=== PATIENT | female | born 1930 | race Caucasian/White ===

== ENCOUNTER 2016-11-07 22:08 | Inpatient (IN) | payer OTHER ==
[~2016-11-07] VITALS: Ht 162.6 cm; Wt 49.3 kg
--- NOTE | ~2016-11-07 | HC ---
[facility] [place] [address] CONSULTATION Name: KYUNG MORALES Room #: 201-P [facility] IN M.R.#: [id number] Admission: 11/08/16 Attend Phys: Esteban Carrasco Discharge: 11/11/16 Date of : 29 Report #: [id number] THIS REPORT FOR: //name// CC: Abisai Dia Esteban Carrasco DATE OF SERVICE: 11/08/2016 REFERRING PHYSICIAN: Dr. Barros. REASON FOR REFERRAL: Hypoxia. HISTORY OF PRESENT ILLNESS: The patient is an 86-year-old white female who presents to the Emergency Room with progressive dyspnea for the past 3 days. A pulmonary consultation was requested. The patient has known COPD. She is followed by Dr. Serrano. According to the patient, she was in her usual state of health until 3 days prior to presentation when she started to develop increasing dyspnea. She has also complained of episodic chest pain, but she has had it for a long time. Otherwise, denies any fever, night sweats or chills, chest pain or productive cough. PAST MEDICAL HISTORY: Remarkable for COPD, severity unknown; hypotension, status post bioprosthetic mitral valve replacement in 2013 for mitral valve disease, chronic systolic heart failure, recent echocardiogram in 08/2015 showed ejection fraction of 50-55%, history of Takotsubo cardiomyopathy in 2014. PAST SURGICAL HISTORY: As mentioned above. ALLERGIES: None noted. HOME MEDICATIONS: Include Flovent 110 mcg 2 puffs twice a day, albuterol 2 puffs p.r.n., Motrin, vitamin D3 and Claritin. FAMILY HISTORY: Noncontributory. SOCIAL HISTORY: The patient has smoked but quit many years ago. She drinks occasional alcohol. REVIEW OF SYSTEMS: As mentioned above, otherwise 10-point system review negative. PHYSICAL EXAMINATION: [facility] [address] [place] [address] CONSULTATION Name: KYUNG MORALES Room #: 201-P [facility] IN [facility].#: [id number] Admission: 11/08/16 Attend Phys: Esteban Carrasco Discharge: 11/11/16 Date of : 29 Report #: [id number] GENERAL: She is awake, alert, in no apparent distress. VITAL SIGNS: Temperature is 97.7 degrees Fahrenheit, pulse is 98, respiratory rate is 28, blood pressure is 112/54 mmHg, saturation is 98% on 4 liters of O2. HEENT: Normocephalic, atraumatic. NECK: Supple, without any lymphadenopathy or thyromegaly. CHEST: Breath sounds are decreased bilaterally without any obvious rales or wheezes. CARDIOVASCULAR: Normal S1, S2. There are no murmurs or gallop. There is no JVD. There is no carotid bruit. Pulses are 2+/4+ bilaterally. ABDOMEN: Soft, nontender, no organomegaly or masses felt. GENITOURINARY: Deferred. RECTAL: Deferred. EXTREMITIES: No cyanosis or clubbing, but remarkable 1-2+ bilateral edema. LABORATORY DATA: Chest x-ray shows cardiomegaly without obvious infiltrates or effusions. Electrolytes are grossly unremarkable except for potassium of 3.4, creatinine is normal. WBC 11,900, hemoglobin ____. No bandemia. IMPRESSION: 1. Progressive dyspnea in this 86-year-old white female with a history of chronic systolic heart failure, chronic obstructive pulmonary disease. Chest x-ray shows cardiomegaly without obvious infiltrates. She denies any recent febrile illness. Mild leukocytosis is noted. Etiology may be related to underlying chronic obstructive pulmonary disease with exacerbation. No overt heart failure, though cannot completely rule out. I do not think pneumonia is ruled out with a relatively clear chest x-ray. 2. Chronic obstructive pulmonary disease, severe, unknown, with exacerbation. 3. Presumed acute on chronic systolic heart failure, ejection fraction had measured 50-55% in 2016. 4. Thrombocytosis, platelet count on this admission was more than a million. This apparently has been chronic. 5. Status post bioprosthetic mitral valve replacement in 2013. RECOMMENDATIONS: Agree with current medical treatment including broad-spectrum antibiotics, corticosteroids and bronchodilators. DVT and GI prophylaxis will be addressed. By: [address] /nt
--- NOTE | ~2016-11-07 | EKG ---
[place] [address] [facility] [place] [address] ELECTROCARDIOGRAM REPORT Name: KYUNG MORALES Room #: 201-P ADM IN M.R.#: [id number] Admission: 11/08/16 Attend Phys: Esteban Carrasco Discharge: Date of : 29 Report #: [id number] THIS REPORT FOR: //name// [facility] ED Test Date: 2016-11-08 Test Time: 00:25:51 Pat Name: KYUNG MORALES Department: Room: 201 Gender: F Yarn Preparation Supervisor: JUAN JOSE : 1930 Requested By: Neva Mathew Order Number: [id number] MD: Paulino Hodge Measurements Intervals [place] Rate: 82 P: 66 DE: 218 QRS: -34 QRSD: 119 T: 81 QT: 419 QTc: 490 Interpretive Statements Sinus rhythm Ventricular bigeminy Probable left atrial enlargement Nonspecific intraventricular conduction delay Anteroseptal infarct, age indeterminate Inferior and lateral ST and T wave abnormality no previous ECGs available for comparison Electronically Signed On 11-08-2016 8:11:23 CDT by Paulino Hodge [email or web address] <ELECTRONICALLY SIGNED> By: Paulino Hodge MD, [facility] 11/08/16 0811 0025 0025 Paulino Hodge MD, [facility] /EPI
--- NOTE | ~2016-11-07 | EKG ---
[address] [place] [address] ELECTROCARDIOGRAM REPORT Name: KYUNG MORALES Room #: 201-P ADM IN M.R.#: [id number] Admission: 11/08/16 Attend Phys: Esteban Carrasco Discharge: Date of : 29 Report #: [id number] THIS REPORT FOR: //name// [facility] ED Test Date: 2016-11-07 Test Time: 22:20:36 Pat Name: KYUNG MORALES Department: Room: 201 Gender: F Auto Service Instructor: JUAN JOSE : 1930 Requested By: Neva Mathew Order Number: [id number] MD: Monty Monsalve Measurements Intervals [place] Rate: 85 P: [place]: QRS: -51 QRSD: 126 T: 95 QT: 451 QTc: 537 Interpretive Statements Sinus rhythm with frequent PVCs. LVH with secondary repolarization abnormality Compared to ECG 09/14/2015 12:13:58 Ventricular premature complex(es) now present Intraventricular conduction delay now present Electronically Signed On 11-08-2016 10:16:22 CDT by Monty Monsalve [email or web address] <ELECTRONICALLY SIGNED> By: Monty Monsalve MD 11/08/16 1016 19 19 Monty Monsalve MD /EPI
[~2016-11-07 22:08] MED LIST: ADVAIR; ADVAIR 250-501 EACH INH; ADVAIR HFA 1112 UNIT INH; ADVAIR HFA115 MCG/21 INH; ALBUTEROL2.5 MG/0.5 INH; ALDACTONE25 MG PO; ASPIR 8181 MG PO; BELSOMRA15 MG PO; CLARITIN10 MG PO; DOXYCYCLINE 10100 MG PO; FLEXERIL PO; FLONASE 0.05%50 MCG INH; FLOVENT HFA 1110 MCG INH; HTN MEDS; HYDROCODONE-AP1 EAC6 PO; IBUPROFEN 800800 M1; LASIX 40 MG TAB40 M2 PO; LEVAQUIN 500 M500 M2 PO; LISINOPRIL2.5 MG PO; LOPRESSOR25 PO; MAGOX 400400 MG PO; NORCO 5-325 TA1 EACH PO; PREDNISONE10 MG PO; PROAIR HFA8.5 GM; SYMBICORT160 MCG/4. INH; TOPROL XL25 MG PO; VITAMIN B-12500 MCG PO; VITAMIN B-6100 MG PO; VITAMIN B12 PO; VITAMIN D35000 UNI1 PO
[2016-11-07 22:22] VITALS: BP 112/54
[2016-11-07 22:26] LABS: HEMOGLOBIN 10.7 gm/dL (12.0-15.0)
[2016-11-07 22:28] LABS: HEMATOCRIT 33.1 % (37.0-47.0); MCH 32.7 pg (26.0-34.0); MCHC 32.4 g/dL (28.0-37.0); MCV 100.9 fL (80.0-100.0); RBC 3.28 mil/uL (4.20-5.00); RDW 19.6 % (10.5-14.5); WBC 11.9 thou/uL (4.0-11.0)
[2016-11-07 22:29] LABS: MANUAL DIFF YES
[2016-11-07 22:33] LABS: ANION GAP 8 mmol/L (7-16); BUN 13 mg/dL (7-18); CALCIUM 9.2 mg/dL (8.5-10.1); CHLORIDE 99 mmol/L (98-107); CO2 35 mmol/L (21-32); CREATININE 0.9 mg/dL (0.6-1.0); GLUCOSE 142 mg/dL (74-106); POTASSIUM 3.4 mmol/L (3.5-5.1); SODIUM 142 mmol/L (136-145)
[2016-11-07 22:40] LABS: APTT 28.8 Seconds (24.5-32.8); INR 1.1; PROTIME 11.1 Seconds (9.3-11.4)
[2016-11-07 22:42] LABS: TROPONIN-I < 0.04 ng/mL (<0.04-0.07)
[2016-11-07 22:57] LABS: PLATELET ESTIMATE AGREES WITH COUNT
[2016-11-07 22:58] LABS: PLATELET COUNT 1008 thou/uL (150-400)
[2016-11-07 23:01] LABS: ABSOLUTE NEUTROPHILS 9.6 thou/uL (1.4-8.2); ANISOCYTOSIS 3+; LARGE PLATELETS OCCASIONAL; MACROCYTES 2+; METAMYELOCYTES 1 %; MICROCYTES 1+; MYELOCYTES 2 %; POLYCHROMASIA OCCASIONAL; TOTAL CELL COUNT 100
[2016-11-08] VITALS (10 sets, daily range): BP systolic 94–145; BP diastolic 46–124
[2016-11-08] MEDS ORDERED: LASIX 20 MG TAB20 MG PO (01:22)
[2016-11-08 04:57] LABS: HEMATOCRIT 31.4 % (37.0-47.0); HEMOGLOBIN 10.6 gm/dL (12.0-15.0); MCH 34.4 pg (26.0-34.0); MCHC 33.9 g/dL (28.0-37.0); MCV 101.4 fL (80.0-100.0); RBC 3.1 mil/uL (4.20-5.00); RDW 19.9 % (10.5-14.5); WBC 10.2 thou/uL (4.0-11.0)
[2016-11-08 05:23] LABS: ANION GAP 2 mmol/L (7-16); BUN 12 mg/dL (7-18); CALCIUM 8.4 mg/dL (8.5-10.1); CHLORIDE 98 mmol/L (98-107); CO2 38 mmol/L (21-32); CREATININE 0.7 mg/dL (0.6-1.0); GLUCOSE 162 mg/dL (74-106); NT-PRO BRAIN NAT PEPTIDE 5711 pg/mL (<300); POTASSIUM 4.2 mmol/L (3.5-5.1); SODIUM 138 mmol/L (136-145); TROPONIN-I < 0.04 ng/mL (<0.04-0.07)
[2016-11-08 08:29] LABS: % SATURATION 12 % (20-39); IRON 38 ug/dL (50-170); TIBC 306 ug/dL (250-450); UIBC 268 ug/dL
[2016-11-08 08:42] LABS: ABSOLUTE RETIC COUNT 0.0866 10^6/uL; OBSERVED RETIC COUNT 2.72 % (0.6-2.6)
[2016-11-09 03:08] VITALS: BP 118/56
[2016-11-09 06:26] LABS: HEMATOCRIT 31.2 % (37.0-47.0); HEMOGLOBIN 10.3 gm/dL (12.0-15.0); MCH 32.9 pg (26.0-34.0); MCHC 32.8 g/dL (28.0-37.0); MCV 100.2 fL (80.0-100.0); RBC 3.12 mil/uL (4.20-5.00); RDW 19.8 % (10.5-14.5); WBC 12.4 thou/uL (4.0-11.0)
[2016-11-09 06:35] LABS: CALCIUM 8.5 mg/dL (8.5-10.1); CREATININE 0.9 mg/dL (0.6-1.0); POTASSIUM 4.1 mmol/L (3.5-5.1)
[2016-11-09 07:02] VITALS: BP 135/71
[2016-11-09 09:59] VITALS: BP 135/48
[2016-11-09 15:23] VITALS: BP 156/89
[2016-11-09 15:26] VITALS: BP 102/50
[2016-11-09 19:04] VITALS: BP 131/80
[2016-11-10 03:07] VITALS: BP 115/65
[2016-11-10 07:15] VITALS: BP 110/58
[2016-11-10 11:15] VITALS: BP 109/60
[2016-11-10 16:05] VITALS: BP 108/48
[2016-11-10 16:15] VITALS: BP 121/80
[2016-11-10 19:30] VITALS: BP 106/62
[2016-11-11 00:08] VITALS: BP 129/68
[2016-11-11 03:09] LABS: HEMOGLOBIN 10.2 gm/dL (12.0-15.0); WBC 11.4 thou/uL (4.0-11.0)
[2016-11-11 03:11] LABS: HEMATOCRIT 31.4 % (37.0-47.0); MCH 32.9 pg (26.0-34.0); MCHC 32.7 g/dL (28.0-37.0); MCV 100.6 fL (80.0-100.0); PLATELET COUNT 884 thou/uL (150-400); RBC 3.12 mil/uL (4.20-5.00); RDW 20.5 % (10.5-14.5)
[2016-11-11 03:12] LABS: MANUAL DIFF YES
[2016-11-11 03:37] LABS: CALCIUM 8.3 mg/dL (8.5-10.1); CREATININE 1.1 mg/dL (0.6-1.0); MAGNESIUM 1.7 mg/dL (1.8-2.4); POTASSIUM 3.1 mmol/L (3.5-5.1)
[2016-11-11 04:01] LABS: ABSOLUTE NEUTROPHILS 10.6 thou/uL (1.4-8.2); ANISOCYTOSIS 2+; METAMYELOCYTES 1 %; TOTAL CELL COUNT 100
[2016-11-11 04:02] LABS: LARGE PLATELETS FEW; PLATELET ESTIMATE INCREASED; TOXIC GRANULATION 2+
[2016-11-11 04:03] VITALS: BP 148/78
[2016-11-11 04:06] LABS: OVALOCYTES 1+; SCHISTOCYTES FEW
[2016-11-11 07:10] VITALS: BP 148/93
[2016-11-11] MEDS ORDERED: COZAAR 25 MG TA25 MG PO (08:21)
[2016-11-11] MEDS ORDERED: KLOR-CON M2020 MEQ PO (08:21)
[2016-11-11] MEDS ORDERED: TOPROL XL25 MG PO (08:21)
[2016-11-11] MEDS ORDERED: TORSEMIDE20 MG PO (08:21)
[2016-11-11] MEDS ORDERED: DUONEB 2.5-0.5 M3 ML INH (08:21)
[2016-11-11] MEDS ORDERED: PREDNISONE 10 M10 MG PO (08:21)
[2016-11-11] MEDS ORDERED: MAG6464 MG PO (08:21)
[2016-11-11 09:40] VITALS: BP 148/93
[2016-11-11 13:46] VITALS: BP 148/93
== END 2016-11-11 13:30 | disposition home health service (06) | DRG 291 ==
LOC: ER 22:08 → 2N 11-08 00:06 → EROBS 11-08 00:06 → 2N 11-08 01:04
PROVIDERS: Emergency Medicine; Internal Medicine; Internal Medicine Hematology & Oncology; Internal Medicine Pulmonary Disease; Nurse Practitioner Family
DX: I11.0 Hypertensive heart disease with heart failure (principal); J96.21 Acute and chronic respiratory failure with hypoxia; J44.1 Chronic obstructive pulmonary disease with (acute) exacerbation; I50.23 Acute on chronic systolic (congestive) heart failure; D47.3 Essential (hemorrhagic) thrombocythemia; E83.42 Hypomagnesemia; I73.9 Peripheral vascular disease, unspecified; K57.90 Diverticulosis of intestine, part unspecified, without perforation or abscess without bleeding; E78.5 Hyperlipidemia, unspecified; D64.9 Anemia, unspecified; F32.9 Major depressive disorder, single episode, unspecified; Z85.828 Personal history of other malignant neoplasm of skin; Z79.899 Other long term (current) drug therapy; Z87.891 Personal history of nicotine dependence; Z95.2 Presence of prosthetic heart valve; Z90.710 Acquired absence of both cervix and uterus; Z99.81 Dependence on supplemental oxygen
CPT/HCPCS: 10081

== ENCOUNTER 2017-05-01 09:34 | Inpatient (IN) | payer OTHER ==
[~2017-05-01] VITALS: Ht 154.9 cm; Wt 46.7 kg
--- NOTE | ~2017-05-01 | EKG ---
[place] [address] [facility] [employer] [place] [address] ELECTROCARDIOGRAM REPORT Name: KYUNG MORALES Room #: 428-P [facility] IN .R.#: [id number] Admission: 05/01/17 Attend Phys: Hitesh Washburn MD Discharge: 05/07/17 Date of : 29 Report #: [id number] THIS REPORT FOR: //name// [facility] ED Test Date: 2017-05-01 Test Time: 09:47:13 Pat Name: KYUNG MORALES Department: Room: Gender: F Magnetic Prospecting Supervisor: Bret CUMMINGS : 1929-08-02 Requested By: Avila Huber Order Number: [id number] MD: Measurements Intervals [place] Rate: 97 P: [place]: QRS: 70 QRSD: 105 T: 76 QT: 412 QTc: 524 Interpretive Statements Atrial fibrillation Paired ventricular premature complexes Anteroseptal infarct, age indeterminate ST elevation, consider inferior injury Compared to ECG 01/26/2017 04:26:10 Ventricular premature complex(es) now present Myocardial infarct finding now present ST (T wave) deviation now present Sinus tachycardia no longer present [email or web address] By: [id number] 6 Epiphany Epiphany, /EPI
--- NOTE | ~2017-05-01 | EKG ---
[place] [address] [facility] [place] [address] ELECTROCARDIOGRAM REPORT Name: LIANGAZARKYUNG Room #: 428-P [facility] IN M.R.#: [id number] Admission: 05/01/17 Attend Phys: Hitesh Washburn MD Discharge: 05/07/17 Date of : 29 Report #: [id number] THIS REPORT FOR: //name// [facility] ED Test Date: 2017-05-01 Test Time: 09:47:13 Pat Name: KYUNG MORALES Department: Room: [facility] Gender: F Tumbler Tender: Bret CUMMINGS : 1929-08-02 Requested By: Avila Huber Order Number: [id number] MD: Paulino Hodge Measurements Intervals [place] Rate: 97 P: [place]: QRS: 70 QRSD: 105 T: 76 QT: 412 QTc: 524 Interpretive Statements Probable atrial fibrillation Paired ventricular premature complexes Anteroseptal infarct, age indeterminate Compared to ECG 01/26/2017 04:26:10 Ventricular premature complex(es) now present Sinus tachycardia no longer present Electronically Signed On 05-01-2017 16:58:35 VIBRATING SCREEN OPERATOR by Paulino Hodge [email or web address] <ELECTRONICALLY SIGNED> By: Paulino Hodge MD, [facility] 05/01/17 1658 0947 0947 Paulino Hodge MD, [facility] /EPI
--- NOTE | ~2017-05-01 | EKG ---
[place] [address] [place] [address] ELECTROCARDIOGRAM REPORT Name: LIANGAZARKYUNG AMELIE Room #: [facility] IN M.R.#: [id number] Admission: 05/01/17 Attend Phys: Hitesh Washburn MD Discharge: 05/07/17 Date of : 29 Report #: [id number] THIS REPORT FOR: //name// [facility] Test Date: 2017-05-05 Test Time: 06:37:10 Pat Name: KYUNG MORALES Department: Room: [facility] Gender: F Drafter Refrigeration: KAMI : 1929-08-02 Requested By: Toby Jennings Order Number: [id number] MD: Paulino Hodge Measurements Intervals [place] Rate: 70 P: -3 OR: 221 QRS: -23 QRSD: 100 T: 52 QT: 400 QTc: 432 Interpretive Statements Sinus rhythm Multiple ventricular premature complexes Prolonged [place] interval Poor R wave progression Baseline wander in lead(s) V1 Compared to ECG 05/01/2017 09:47:13 Sinus rhythm has replaced probable atrial fibrillation Electronically Signed On 05-05-2017 7:48:27 SUPERVISOR [employer]AK[employer] by Paulino Hodge [email or web address] <ELECTRONICALLY SIGNED> By: Paulino Hodge MD, [facility] 05/05/17 0748 0637 0637 Paulino Hodge MD, [facility] /EPI
--- NOTE | ~2017-05-01 | HC ---
[facility] [place] [address] CONSULTATION Name: KYUNG MORALES Room #: 428-P [facility] IN M.R.#: [id number] Admission: 05/01/17 Attend Phys: Hitesh Washburn MD Discharge: 05/07/17 Date of : 29 Report #: [id number] THIS REPORT FOR: //name// CC: Eladia Jennings MD [facility] Hitesh Washburn MD REQUESTING PHYSICIAN: Hitesh Washburn MD REASON FOR CONSULT: Thrombocythemia. HISTORY OF PRESENT ILLNESS: The patient is a very pleasant 87-year-old female who is originally from [place] who lives down here in the [place] area in the [place] area. She is not aware of any previous history of thrombocytosis. Note that at the [facility] lab a few times in 2016, her platelet count was in the mid 500,000. She reports recently being at [facility] for exacerbation of COPD, but is not aware of her platelet count during that time. Here, her platelet count on admission was 869,000 and actually yesterday was 1,088,000. Note that during the same time, her hemoglobin has been 10.5, MCV of 98.4 and white count of 9 with a fairly normal differential. The patient was admitted for atrial fibrillation and presented with shortness of breath. She is on a nebulizer, but it did not seem to help much. If I understand, denied any fevers or chills, new arm or leg swelling, blood in urine or stool. PAST MEDICAL HISTORY: Notable for anemia, COPD, history of tonsillectomy, history of hysterectomy, also had a valve replaced over at about 2013 or 2014, has a bioprosthetic valve, sound like ____, I am not quite sure what that means. She also has hypertension, hypercholesterolemia and also Takotsubo cardiomyopathy. SOCIAL HISTORY: It sounds like she herself is a smoker and quit maybe 30 years ago, but her was a heavy smoker, so a lot of secondhand smoke. Alcohol, she enjoys cocktail, [facility] [place], also likes quite a few of the restaurants in the [place] in [facility]. She has maybe cocktails several evenings a week. No street drugs. FAMILY HISTORY: She is not aware of any cancers or blood disorders with either her mother, father, brother, sister or a son. MEDICATIONS: At this time in the hospital include prednisone 20 mg q.12, pantoprazole 40 mg daily, sennosides 2 tabs with dinner, ipratropium respiratory therapy q.6 as needed, potassium chloride 20 mEq daily, furosemide 20 mg daily, iron sulfate 325 mg daily, guaifenesin 600 b.i.d., mirtazapine 15 at bedtime, levalbuterol 0.63 mg q.2 as needed, budesonide 0.5 mg respiratory therapy b.i.d., doxycycline 100 mg b.i.d., had been on ceftriaxone 1 gram daily, rivaroxaban 15 mg at dinner, and Tylenol p.r.n. [facility] [address] [facility] [place] [address] CONSULTATION Name: KYUNG MORALES Room #: 428-P [facility] IN M.R.#: [id number] Admission: 05/01/17 Attend Phys: Hitesh Washburn MD Discharge: 05/07/17 Date of : 29 Report #: [id number] RADIOLOGIC STUDIES: Include a chest x-ray this admit showing interval improvement in bilateral pleural effusions, bibasilar infiltrates and interval improvement in cardiomegaly. LABORATORY DATA: Other lab tests here include BUN of 32 and creatinine of 0.9. Liver functions earlier this admit were normal. Albumin of 3.5. Coags have been normal. WBC was 8.7, admission hemoglobin 9.7, MCV had been 101.5, platelets 869. Folic acid on May 01, was greater than 40, B12 was 817. Respiratory PCR virus panel was negative. She has been on 3 liters of oxygen. PHYSICAL EXAMINATION: GENERAL: The patient appears her stated age. VITAL SIGNS: Height is 5 feet 1 inch, which is 154.9 cm. Weight is 102.9 pounds, which is 46.7 kg. Recent blood pressure 110/58, O2 sat 95%, pulse 69, respirations 16, and temperature 99.1. MOOD: She is alert and very pleasant. NEUROLOGIC: Face is symmetrical, moving all extremities. LUNGS: Have some slightly distant lung sounds. HEART: Appears regular rate. ABDOMEN: Soft. No enlarged lymph nodes in the supraclavicular, cervical, axillary, or inguinal region. EXTREMITIES: Without clubbing or cyanosis. There is some trace edema. DISCUSSION: Discussed with the patient that I am seeing her because of her high platelet count, which may be reactive or could be a bone marrow condition. I told her that there is a condition called essential thrombocythemia, which can have a higher clot and bleeding risk, on either hand she is currently on Xarelto, so she would be quite protected. Since this could be reactive, we will check lab as an outpatient, also get lab from [facility]. We would consider checking a JAK2 mutation as well as an erythropoietin level and may need to consider an MIPL test. We will see what workup was done at [facility]. ASSESSMENT AND PLAN: 1. Thrombocythemia, unclear whether reactive or primary. We will check lab from [facility], most likely follow up in 6 weeks. We would consider JAK2 mutation and perhaps an MIPL mutation test and if these are positive, I would consider Hydrea to normalize platelet count to help decrease risk for strokes and clots for the main benefit, short term is from anticoagulants such as aspirin, in this case rivaroxaban. 2. Exacerbation of chronic obstructive pulmonary disease. Continue steroids, inhalers, and antibiotics. 3. Bioprosthetic valve. Continue with Xarelto. 4. Chronic obstructive pulmonary disease, multiple inhalers. [facility] [address] [place] [address] CONSULTATION Name: KYUNG MORALES Room #: 428-P [facility] IN M.R.#: [id number] Admission: 05/01/17 Attend Phys: Hitesh Washburn MD Discharge: 05/07/17 Date of : 29 Report #: [id number] 5. Lipids, dietary management. 6. Hypertension. Medication management. We will follow with you. <ELECTRONICALLY SIGNED> By: Otilio Tovar MD 05/14/17 0710 0836 1250 Otilio Tovar MD /la nena
--- NOTE | ~2017-05-01 | 2DMMODE ---
[facility] [address] [place] [address] 2 D/M-MODE ECHOCARDIOGRAM Name: KYUNG MORALESAN Room #: 428-P [facility] IN M.R.#: [id number] Admission: 05/01/17 Attend Phys: Hitesh Washburn, Discharge: 05/07/17 Date of : 29 Date of Service: 05/02/17 1210 Report #: [id number] THIS REPORT FOR: //name// APPROVED REPORT Study performed: 05/02/2017 10:22:58 EXAM: Comprehensive 2D, Doppler, and color-flow Echocardiogram Patient Location: Bedside Room #: 428 Status: routine BSA: 1.40 BP: 122/60 mmHg Other Information Study Quality: Good Indications COPD Mitral Valve Disease Atrial Fibrillation Hypertension/HDD MVR 2D Dimensions RVDd: 50.60 mm LVEF(%): 51.75 (>50%) IVSd: 10.38 (7-11mm) LVOT Diam: 19.52 (18-24mm) LVDd: 57.33 mm PWd: 9.59 (7-11mm) Ascending Ao: 32.94 (22-36mm) LVDs: 41.92 (25-40mm) Aortic Root: 31.06 mm IVC: 25.00 mm German's LVEF: 51.75 % Volumes Left Atrial Volume (Systole) Single Plane 4CH: 133.54 mL Single Plane 2CH: 147.82 mL LA ESV Index: 113.00 mL/m2 Aortic Valve AoV Peak Cash.: 1.90 m/s AO Peak Gr.: 14.54 mmHg LVOT Max P.26 mmHg LVOT Max V: 1.14 m/s DARIANA Vmax: 1.79 cm2 [facility] [place] [address] 2 D/M-MODE ECHOCARDIOGRAM Name: MORIAH MORALESTY AMELIE [id number] Admission: 05/01/17 Attend Phys: Hitesh Washburn, Discharge: 05/07/17 Date of : 29 Date of Service: 05/02/17 1210 Report #: [id number] Pulmonary Valve PV Peak Cash.: 0.96 m/s PV Peak Gr.: 3.68 mmHg NC End Vmax: 1.16 m/s Tricuspid Valve TR Peak Cash.: 3.15 m/s TR Peak Gr.: 39.69 mmHg PA Pressure: 55.00 mmHg Left Ventricle Left ventricle is at the upper limits of normal. There is normal LV segmental wall motion. There is normal left ventricular wall thickness. The left ventricular systolic function is normal. The left ventricular ejection fraction is within the normal range. LVEF is 55-60%. This study is not technically sufficient to allow evaluation of the LV diastolic function due to atrial fibrillation. Right Ventricle Right ventricle is dilated. The right ventricular systolic function is normal. Atria Left atrium is dilated. Small PFO is noted with color flow doppler. Right atrium is dilated. Aortic Valve Aortic valve is calcified, trileaflet. Trace aortic regurgitation. There is no aortic valvular stenosis. Mitral Valve There is a bioprosthetic mitral valve. Trace to mild mitral regurgitation. No evidence of mitral valve stenosis. Tricuspid Valve The tricuspid valve is normal in structure. There is mild tricuspid regurgitation. Estimated PAP 55 mmHg. There is moderate pulmonary hypertension. Pulmonic Valve The pulmonary valve is normal in structure. Mild pulmonic regurgitation. Great Vessels The aortic root is normal in size. The inferior vena cava is dilated with no inspiratory collapse. [facility] [address] [place] [address] 2 D/M-MODE ECHOCARDIOGRAM Name: LIANGAZARKYUNG Room #: 428-P [facility] IN M.R.#: [id number] Admission: 05/01/17 Attend Phys: Hitesh Washburn, Discharge: 05/07/17 Date of : 29 Date of Service: 05/02/17 1210 Report #: [id number] Pericardium There is no pericardial effusion. <Conclusion> The left ventricular systolic function is normal. There is normal LV segmental wall motion. LVEF is 55-60%. Both atria are dilated. Small PFO is noted with color flow doppler. Aortic valve is calcified, trileaflet. No aortic valvular stenosis or insufficiency. There is a bioprosthetic mitral valve. Trace to mild mitral regurgitation. There is mild tricuspid regurgitation. Estimated pulmonary artery pressure of 55 mmHg. There is no pericardial effusion. <ELECTRONICALLY SIGNED> By: Paulino Hodge MD, FACC 05/02/17 1210 1210 121 Paulino Hodge MD, FACC /INF
[~2017-05-01 09:34] MED LIST changes: +COZAAR 25 MG TA25 MG PO; +DUONEB 2.5-0.5 M3 ML INH; +KLOR-CON M2020 MEQ PO; +LASIX 20 MG TAB20 MG PO; +MAG6464 MG PO; +PREDNISONE 10 M10 MG PO; +PREDNISONE 20 M20 MG PO; +TORSEMIDE20 MG PO; +VENTOLIN HFA 1818 GM INH
[2017-05-01 09:42] VITALS: BP 129/45
[2017-05-01] MEDS ORDERED: LASIX 20 MG TAB20 MG PO (09:59)
[2017-05-01] MEDS ORDERED: POTASSIUM20 PO (10:00)
[2017-05-01] MEDS ORDERED: XARELTO15 MG PO (10:00)
[2017-05-01] MEDS ORDERED: LOPRESSOR25 PO (10:01)
[2017-05-01] MEDS ORDERED: REMERON15 MG PO (10:01)
[2017-05-01] MEDS ORDERED: FERROUS GLUCON324 M2 PO (10:02)
[2017-05-01 10:16] LABS: ABSOLUTE NEUTROPHILS 6.3 thou/uL (1.4-8.2); BASOPHILS 2.3 % (0.0-2.0); EOSINOPHILS 2.7 % (0.0-3.0); HEMATOCRIT 30.2 % (37.0-47.0); HEMOGLOBIN 9.7 gm/dL (12.0-15.0); LYMPHOCYTES 17.7 % (24.0-44.0); MCH 32.7 pg (26.0-34.0); MCHC 32.2 g/dL (28.0-37.0); MCV 101.5 fL (80.0-100.0); MONOCYTES 5.6 % (1.0-8.0); POLYS 71.7 % (36.0-66.0); RBC 2.98 mil/uL (4.20-5.00); RDW 18.3 % (10.5-14.5); WBC 8.7 thou/uL (4.0-11.0)
[2017-05-01 10:19] LABS: ANION GAP 0 mmol/L (7-16); BUN 24 mg/dL (7-18); CHLORIDE 104 mmol/L (98-107); CO2 39 mmol/L (21-32); CREATININE 0.7 mg/dL (0.6-1.0); GLUCOSE 110 mg/dL (74-106); POTASSIUM 4.9 mmol/L (3.5-5.1); SODIUM 143 mmol/L (136-145)
[2017-05-01 10:25] LABS: APTT 28.2 Seconds (24.5-32.8); INR 1.1; PROTIME 10.9 Seconds (9.3-11.4)
[2017-05-01 10:28] LABS: ALBUMIN 3.5 g/dL (3.4-5.0); SGOT 27 U/L (15-37); SGPT 18 U/L (30-65); TOTAL BILIRUBIN 0.6 mg/dL (<0.1-1.0); TOTAL PROTEIN 5.9 g/dL (6.4-8.2); TROPONIN-I < 0.04 ng/mL (<0.06)
[2017-05-01 11:09] LABS: PLATELET COUNT 869 thou/uL (150-400); PLATELET ESTIMATE INCREASED
[2017-05-01 12:23] VITALS: BP 95/40
[2017-05-01 12:33] VITALS: BP 113/53
[2017-05-01 13:25] VITALS: BP 125/55
[2017-05-01 20:00] VITALS: BP 124/58
[2017-05-01 20:13] LABS: FOLIC ACID > 40.0 ng/mL (8.6-58.9)
[2017-05-01 22:24] LABS: URINE BILIRUBIN NEGATIVE (Negative); URINE BLOOD NEGATIVE (Negative); URINE CLARITY CLEAR; URINE COLOR YELLOW; URINE GLUCOSE-RANDOM* 1+ (Negative); URINE KETONES NEGATIVE (Negative); URINE LEUKOCYTES-REFLEX NEGATIVE (Negative); URINE NITRITE-REFLEX NEGATIVE (Negative); URINE PROTEIN (DIPSTICK) NEGATIVE (Negative); URINE UROBILINOGEN 0.2 E.U./dl (0.2-1.0)
[2017-05-02 04:36] VITALS: BP 132/57
[2017-05-02 07:14] VITALS: BP 122/60
[2017-05-02 14:02] LABS: BE(vivo) 3.5 mmol/L (-2 to +3); HCO3 30.6 mmol/L (22.0-26.0); PCO2 60.3 mmHg (35.0-45.0); PO2 95.5 mmHg (80.0-100.0); pH 7.323 (7.360-7.450); sO2 96.6 % (92.0-98.0)
[2017-05-02 15:40] VITALS: BP 119/61
[2017-05-02 23:14] VITALS: BP 132/71
[2017-05-03 03:27] VITALS: BP 138/65
[2017-05-03 08:10] VITALS: BP 149/61; BP 89/45
[2017-05-03 08:56] LABS: BE(vivo) 4.6 mmol/L (-2 to +3); HCO3 30.2 mmol/L (22.0-26.0); PCO2 50.5 mmHg (35.0-45.0); pH 7.395 (7.360-7.450); sO2 97.1 % (92.0-98.0)
[2017-05-03 15:20] VITALS: BP 144/76
[2017-05-03 20:38] VITALS: BP 130/57
[2017-05-04 04:57] VITALS: BP 145/54
[2017-05-04 07:45] VITALS: BP 134/67
[2017-05-04 15:51] VITALS: BP 1201/61
[2017-05-04 20:20] VITALS: BP 120/59
[2017-05-05 04:16] VITALS: BP 116/55
[2017-05-05 08:10] VITALS: BP 144/57
[2017-05-05 15:30] VITALS: BP 131/54
[2017-05-05 20:20] VITALS: BP 138/60
[2017-05-06 03:06] LABS: ADENOVIRUS Negative (Negative); INFLUENZA A Negative (Negative); INFLUENZA B Negative (Negative); METAPNEUMOVIRUS Negative (Negative); PARAINFLUENZA 1 Negative (Negative); PARAINFLUENZA 2 Negative (Negative); PARAINFLUENZA 3 Negative (Negative); RHINOVIRUS Negative (Negative); RSV A Negative (Negative); RSV B Negative (Negative)
[2017-05-06 03:43] VITALS: BP 143/80
[2017-05-06 08:40] VITALS: BP 132/66
[2017-05-06 13:51] LABS: HEMATOCRIT 31.5 % (37.0-47.0); HEMOGLOBIN 10.5 gm/dL (12.0-15.0)
[2017-05-06 13:53] LABS: MCHC 33.5 g/dL (28.0-37.0); MCV 98.4 fL (80.0-100.0); RBC 3.2 mil/uL (4.20-5.00)
[2017-05-06 13:58] LABS: CALCIUM 8.7 mg/dL (8.5-10.1); CREATININE 0.9 mg/dL (0.6-1.0); POTASSIUM 4.4 mmol/L (3.5-5.1)
[2017-05-06 16:59] VITALS: BP 107/64
[2017-05-06 17:17] LABS: URINE BILIRUBIN NEGATIVE (Negative); URINE BLOOD NEGATIVE (Negative); URINE CLARITY CLEAR; URINE COLOR YELLOW; URINE GLUCOSE-RANDOM* NEGATIVE (Negative); URINE KETONES NEGATIVE (Negative); URINE LEUKOCYTES NEGATIVE (Negative); URINE NITRITE NEGATIVE (Negative); URINE PROTEIN (DIPSTICK) NEGATIVE (Negative); URINE SPECIFIC GRAVITY 1.015 (1.005-1.035); URINE UROBILINOGEN 0.2 E.U./dl (0.2-1.0)
[2017-05-07 04:00] VITALS: BP 110/58
[2017-05-07 07:50] VITALS: BP 144/71
[2017-05-07] MEDS ORDERED: CEFDINIR300 MG PO (08:03)
[2017-05-07 11:46] VITALS: BP 144/71
[2017-05-07 11:48] VITALS: BP 144/71
[2017-05-07 14:37] VITALS: BP 144/71
== END 2017-05-07 14:42 | disposition home or self-care (01) | DRG 189 ==
LOC: ER 09:34 → 4E 11:02 → EROBS 11:02 → 4E 11:02 → EDBD 05-07 14:42 → 4E 05-07 14:42
PROVIDERS: Emergency Medicine; Family Medicine; Internal Medicine Pulmonary Disease
PROC: 5A09357 Assistance with Respiratory Ventilation, Less than 24 Consecutive Hours, Continuous Positive Airway Pressure (ICD-10-PCS; principal; 2017-05-02)
PROC: 5A09357 Assistance with Respiratory Ventilation, Less than 24 Consecutive Hours, Continuous Positive Airway Pressure (ICD-10-PCS; 2017-05-03)
DX: J96.92 Respiratory failure, unspecified with hypercapnia (principal); J44.1 Chronic obstructive pulmonary disease with (acute) exacerbation; E78.00 Pure hypercholesterolemia, unspecified; D69.6 Thrombocytopenia, unspecified; I50.9 Heart failure, unspecified; I11.0 Hypertensive heart disease with heart failure; I48.91 Unspecified atrial fibrillation; D53.9 Nutritional anemia, unspecified; Z79.899 Other long term (current) drug therapy; Z90.49 Acquired absence of other specified parts of digestive tract; Z90.710 Acquired absence of both cervix and uterus; Z95.2 Presence of prosthetic heart valve; Z87.891 Personal history of nicotine dependence; Z99.81 Dependence on supplemental oxygen
CPT/HCPCS: 10084; 10183

== ENCOUNTER → 2017-06-04 | Outpatient (CLI) | payer OTHER ==
[~2017-06-04] MED LIST changes: +CEFDINIR300 MG PO; +CEFUROXIME250 MG PO; +FERROUS GLUCON324 M2 PO; +MEDROLDOSEPACK PO; +POTASSIUM20 PO; +PREDNISONE 20 M20 M1 PO; +PULMICORT0.5 MG/22 INH; +REMERON15 MG PO; +XARELTO15 MG PO
[2017-06-04 16:58] LABS: BE(vivo) -1.3 mmol/L (-2 to +3); HCO3 23.6 mmol/L (22.0-26.0); PCO2 40.7 mmHg (35.0-45.0); PO2 55.7 mmHg (80.0-100.0); pH 7.382 (7.360-7.450); sO2 88.6 % (92.0-98.0)
== END ==
LOC: RAD 16:05 → PUL 16:05 → LAB 16:05 → EDBD 16:05
PROVIDERS: Internal Medicine Pulmonary Disease
DX: R06.00 Dyspnea, unspecified (principal); J90 Pleural effusion, not elsewhere classified

== ENCOUNTER 2017-06-09 15:56 | Emergency (ER) | payer OTHER ==
[~2017-06-09] VITALS: Ht 152.4 cm; Wt 43.1 kg
--- NOTE | ~2017-06-09 | EKG ---
[place] [address] [place] [address] ELECTROCARDIOGRAM REPORT Name: KYUNG MORALES [facility] [id number] Admission: 06/09/17 Attend Phys: Discharge: 06/09/17 Date of : 29 Report #: [id number] THIS REPORT FOR: //name// [facility] ED Test Date: 2017-06-09 Test Time: 16:15:05 Pat Name: KYUNG MORALES Department: Room: Gender: F Straight Edger: JUAN : 1929-08-02 Requested By: Darren Erickson Order Number: [id number] MD: Paulino Hodge Measurements Intervals [place] Rate: 77 P: 17 [place]: 243 QRS: -59 QRSD: 118 T: 77 QT: 399 QTc: 452 Interpretive Statements Sinus rhythm Prolonged [place] interval Left anterior fascicular block Poor R wave progression no previous ECGs available for comparison Electronically Signed On 06-10-2017 19:15:03 CDT by Paulino Hodge [email or web address] <ELECTRONICALLY SIGNED> By: Paulino Hodge MD, [facility] 06/10/17 1915 D: [id number] 14 Paulino Hodge MD, FACC /EPI
[~2017-06-09 15:56] MED LIST changes: -CEFUROXIME250 MG PO; -MEDROLDOSEPACK PO; -PREDNISONE 20 M20 M1 PO; -PULMICORT0.5 MG/22 INH
[2017-06-09 16:54] LABS: ABSOLUTE NEUTROPHILS 6.6 thou/uL (1.4-8.2); BASOPHILS 1.4 % (0.0-2.0); EOSINOPHILS 2.4 % (0.0-3.0); HEMATOCRIT 29.5 % (37.0-47.0); HEMOGLOBIN 9.7 gm/dL (12.0-15.0); LYMPHOCYTES 16.3 % (24.0-44.0); MCH 32.6 pg (26.0-34.0); MCV 98.6 fL (80.0-100.0); MONOCYTES 6.9 % (1.0-8.0); RBC 2.99 mil/uL (4.20-5.00); RDW 16.1 % (10.5-14.5)
[2017-06-09 16:56] LABS: PLATELET COUNT 868 thou/uL (150-400)
[2017-06-09 17:01] LABS: ANION GAP 3 mmol/L (7-16); BUN 22 mg/dL (7-18); CALCIUM 9.7 mg/dL (8.5-10.1); CHLORIDE 105 mmol/L (98-107); CO2 33 mmol/L (21-32); CREATININE 0.7 mg/dL (0.6-1.0); GLUCOSE 102 mg/dL (74-106); POTASSIUM 4.1 mmol/L (3.5-5.1); SODIUM 141 mmol/L (136-145)
[2017-06-09 17:10] LABS: TROPONIN-I < 0.04 ng/mL (<0.06)
[2017-06-09] MEDS ORDERED: DOXYCYCLINE 10100 MG PO (17:58)
[2017-06-09] MEDS ORDERED: MEDROLDOSEPACK PO (17:58)
[2017-06-09 18:45] VITALS: BP 162/82
== END 2017-06-09 18:46 | disposition home or self-care (01) ==
LOC: EDBD 15:56 → ER 15:56
PROVIDERS: Nurse Practitioner
DX: R05 Cough (principal); R06.00 Dyspnea, unspecified; I48.91 Unspecified atrial fibrillation; J44.9 Chronic obstructive pulmonary disease, unspecified; I10 Essential (primary) hypertension

== ENCOUNTER 2017-06-23 08:34 | Emergency (ER) | payer OTHER ==
[~2017-06-23] VITALS: Ht 162.6 cm; Wt 43.1 kg
--- NOTE | ~2017-06-23 | EKG ---
[place] [address] [employer] [address] ELECTROCARDIOGRAM REPORT Name: ESHAKYNUG RENAE [id number] Admission: 06/23/17 Attend Phys: Discharge: 06/23/17 Date of : 29 Report #: [id number] THIS REPORT FOR: //name// [facility] ED Test Date: 2017-06-23 Test Time: 08:42:03 Pat Name: KYUNG MORALES Department: Room: Gender: F Surgeon Chief: hoda : 1930 Requested By: Glen Juarez Order Number: [id number] MD: Paulino Hodge Measurements Intervals [place] Rate: 96 P: [place]: QRS: -67 QRSD: 108 T: 185 QT: 464 QTc: 587 Interpretive Statements Atrial fibrillation Paired ventricular premature complexes Left anterior fascicular block Abnormal R-wave progression, late transition T-wave abnormality, consider lateral ischemia Compared to ECG 06/09/2017 16:15:05 premature ventricular complexes are now present atrial fibrillation has replaced sinus rhythm lateral ST and T wave abnormality is now present Electronically Signed On 06-24-2017 9:35:21 CDT by Paulino Hodge [email or web address] <ELECTRONICALLY SIGNED> By: Paulino Hodge MD, [facility] 06/24/17 0935 0842 0842 Paulino Hodge MD, FAC /EPI
[~2017-06-23 08:34] MED LIST changes: +MEDROLDOSEPACK PO
[2017-06-23 08:59] LABS: ABSOLUTE NEUTROPHILS 9.9 thou/uL (1.4-8.2); BASOPHILS 1.2 % (0.0-2.0); EOSINOPHILS 2.1 % (0.0-3.0); HEMATOCRIT 27.3 % (37.0-47.0); HEMOGLOBIN 8.9 gm/dL (12.0-15.0); LYMPHOCYTES 9.4 % (24.0-44.0); MCHC 32.4 g/dL (28.0-37.0); MCV 98.5 fL (80.0-100.0); MONOCYTES 5.5 % (1.0-8.0); PLATELET COUNT 547 thou/uL (150-400); POLYS 81.8 % (36.0-66.0); RBC 2.77 mil/uL (4.20-5.00); RDW 17.1 % (10.5-14.5); WBC 12.1 thou/uL (4.0-11.0)
[2017-06-23 09:08] LABS: CREATININE 0.7 mg/dL (0.6-1.0); POTASSIUM 4.6 mmol/L (3.5-5.1)
[2017-06-23 09:16] LABS: TROPONIN-I 0.12 ng/mL (<0.06)
[2017-06-23 10:35] VITALS: BP 104/59
== END 2017-06-23 10:35 | disposition home or self-care (01) ==
LOC: ER 08:34
PROVIDERS: Emergency Medicine
DX: J44.1 Chronic obstructive pulmonary disease with (acute) exacerbation (principal); I11.0 Hypertensive heart disease with heart failure; I50.9 Heart failure, unspecified; I48.91 Unspecified atrial fibrillation; I10 Essential (primary) hypertension

== ENCOUNTER 2017-07-11 07:40 | Inpatient (IN) | payer OTHER ==
[~2017-07-11] VITALS: Ht 162.6 cm; Wt 45.4 kg
--- NOTE | ~2017-07-11 | EKG ---
[place] [address] [facility] [place] [address] ELECTROCARDIOGRAM REPORT Name: KYUNG MORALES Room #: 454-P ADM IN M.R.#: [id number] Admission: 07/11/17 Attend Phys: Hitesh Washburn MD Discharge: Date of : 29 Report #: [id number] THIS REPORT FOR: //name// [facility] ED Test Date: 2017-07-11 Test Time: 08:22:03 Pat Name: KYUNG MORALES Department: Room: [facility] Gender: F Hygiene Teacher: [facility] : 1930 Requested By: Glen Juarez Order Number: [id number] MD: Paulino Hodge Measurements Intervals [place] Rate: 79 P: [place]: QRS: -40 QRSD: 112 T: 170 QT: 452 QTc: 519 Interpretive Statements Accelerated junctional rhythm Ventricular bigeminy LVH with secondary repolarization abnormality vs ischemia Compared to ECG 06/23/2017 08:42:03 Accelerated junctional rhythm now present Electronically Signed On 07-12-2017 12:15:14 CDT by Paulino Hodge [email or web address] <ELECTRONICALLY SIGNED> By: Paulino Hodge MD, [facility] 07/12/17 1215 1 08 Paulino Hodge MD, [facility] /EPI
--- NOTE | ~2017-07-11 | EKG ---
[place] [address] [facility] [place] [address] ELECTROCARDIOGRAM REPORT Name: SENIAMORIAH MASTTY AMELIE Room #: 454- ADM IN M.R.#: [id number] Admission: 07/11/17 Attend Phys: Hitesh Washburn MD Discharge: Date of : 29 Report #: [id number] THIS REPORT FOR: //name// [facility] Test Date: 2017-07-13 Test Time: 10:22:15 Pat Name: KYUNG MORALES Department: Room: 454 Gender: F Sharepoint Administrator: PINKY : 1930 Requested By: Hitesh Washburn Order Number: [id number] MD: Paulino Hodge Measurements Intervals [place] Rate: 67 P: 11 FL: 229 QRS: -51 QRSD: 123 T: 118 QT: 431 QTc: 455 Interpretive Statements Sinus rhythm Multiform ventricular premature complexes Incomplete Left bundle branch block Compared to ECG 07/11/2017 08:22:03 Sinus rhythm is replaced accelerated junctional rhythm Electronically Signed On 07-13-2017 12:15:58 CDT by Pauilno Hodge [email or web address] <ELECTRONICALLY SIGNED> By: Paulino Hodge MD, [facility] 07/13/17 1215 1022 1022 Paulino Hodge MD, [facility] /EPI
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
[2017-07-11 08:14] VITALS: BP 114/51
[2017-07-11 08:16] LABS: HEMATOCRIT 29.4 % (37.0-47.0); HEMOGLOBIN 9.5 gm/dL (12.0-15.0); MCH 32.4 pg (26.0-34.0); MCHC 32.4 g/dL (28.0-37.0); MCV 99.9 fL (80.0-100.0); RBC 2.94 mil/uL (4.20-5.00)
[2017-07-11 08:24] LABS: BE(vivo) 5.3 mmol/L (-2 to +3); HCO3 31.9 mmol/L (22.0-26.0); PCO2 58.6 mmHg (35.0-45.0); PO2 82.5 mmHg (80.0-100.0); pH 7.354 (7.360-7.450); sO2 95.4 % (92.0-98.0)
[2017-07-11 08:41] LABS: ANION GAP 2 mmol/L (7-16); BUN 23 mg/dL (7-18); CHLORIDE 105 mmol/L (98-107); CO2 35 mmol/L (21-32); CREATININE 0.9 mg/dL (0.6-1.0); GLUCOSE 122 mg/dL (74-106); POTASSIUM 4.4 mmol/L (3.5-5.1); SODIUM 142 mmol/L (136-145)
[2017-07-11 08:50] LABS: TROPONIN-I < 0.04 ng/mL (<0.06)
[2017-07-11] MEDS ORDERED: PULMICORT0.5 MG/22 INH (09:06)
[2017-07-11 10:24] VITALS: BP 109/61
[2017-07-11 11:24] VITALS: BP 102/50
[2017-07-11 11:45] VITALS: BP 118/66
[2017-07-11 16:00] VITALS: BP 112/62
[2017-07-11 20:07] VITALS: BP 109/57
[2017-07-12 03:31] VITALS: BP 108/60
[2017-07-12 07:45] VITALS: BP 112/56
[2017-07-12 19:26] VITALS: BP 122/60
[2017-07-13 04:36] VITALS: BP 105/54
[2017-07-13 07:28] VITALS: BP 128/63
[2017-07-13 07:44] LABS: HEMATOCRIT 26.8 % (37.0-47.0); HEMOGLOBIN 8.7 gm/dL (12.0-15.0); MCH 32.1 pg (26.0-34.0); MCHC 32.4 g/dL (28.0-37.0); MCV 99.1 fL (80.0-100.0); RBC 2.7 mil/uL (4.20-5.00); RDW 17.8 % (10.5-14.5); WBC 11.6 thou/uL (4.0-11.0)
[2017-07-13 07:56] LABS: CREATININE 0.9 mg/dL (0.6-1.0)
[2017-07-13 16:35] VITALS: BP 138/73
[2017-07-13 19:07] VITALS: BP 137/60
[2017-07-14 05:28] VITALS: BP 106/56
[2017-07-14 08:00] VITALS: BP 126/64
[2017-07-14 12:18] LABS: BE(vivo) 5.3 mmol/L (-2 to +3); HCO3 31.1 mmol/L (22.0-26.0); PCO2 51.8 mmHg (35.0-45.0); pH 7.396 (7.360-7.450); sO2 84.7 % (92.0-98.0)
[2017-07-14 12:44] LABS: HEMATOCRIT 28.6 % (37.0-47.0); HEMOGLOBIN 9.2 gm/dL (12.0-15.0); MCHC 32.2 g/dL (28.0-37.0); MCV 99.4 fL (80.0-100.0); RBC 2.87 mil/uL (4.20-5.00); RDW 17.9 % (10.5-14.5); WBC 11.6 thou/uL (4.0-11.0)
[2017-07-14 12:58] LABS: ALBUMIN 3.2 g/dL (3.4-5.0); CALCIUM 8.9 mg/dL (8.5-10.1); CREATININE 0.7 mg/dL (0.6-1.0); POTASSIUM 4.4 mmol/L (3.5-5.1); TOTAL BILIRUBIN 0.6 mg/dL (<0.1-1.0); TOTAL PROTEIN 5.7 g/dL (6.4-8.2)
[2017-07-14 16:00] VITALS: BP 113/63
[2017-07-14 19:29] VITALS: BP 119/68
[2017-07-14 20:14] VITALS: BP 124/80
[2017-07-15 03:50] VITALS: BP 142/81
[2017-07-15 07:23] VITALS: BP 145/69
[2017-07-15 16:01] VITALS: BP 142/69
[2017-07-15 19:48] VITALS: BP 115/57
[2017-07-16 05:46] VITALS: BP 131/69
[2017-07-16 06:14] LABS: CALCIUM 8.8 mg/dL (8.5-10.1); CREATININE 0.9 mg/dL (0.6-1.0); MAGNESIUM 2.1 mg/dL (1.8-2.4); POTASSIUM 4.4 mmol/L (3.5-5.1)
[2017-07-16] MEDS ORDERED: PREDNISONE 20 M20 M1 PO (07:57)
[2017-07-16] MEDS ORDERED: CEFUROXIME250 MG PO (07:58)
[2017-07-16 08:00] VITALS: BP 139/69
[2017-07-16 11:36] VITALS: BP 139/69
[2017-07-16 13:18] VITALS: BP 139/69
== END 2017-07-16 13:44 | disposition home or self-care (01) | DRG 189 ==
LOC: ER 07:40 → EDBD 07:40 → ER 07:40 → 4W 09:35 → EROBS 09:35 → 4W 11:23 → ENTRNSPT 07-16 13:06 → EDTRNSPTSTS 07-16 13:08 → 4W 07-16 13:44
PROVIDERS: Emergency Medicine; Internal Medicine Pulmonary Disease
PROC: 5A09357 Assistance with Respiratory Ventilation, Less than 24 Consecutive Hours, Continuous Positive Airway Pressure (ICD-10-PCS; principal; 2017-07-12)
PROC: 5A09357 Assistance with Respiratory Ventilation, Less than 24 Consecutive Hours, Continuous Positive Airway Pressure (ICD-10-PCS; 2017-07-15)
DX: J96.21 Acute and chronic respiratory failure with hypoxia (principal); I50.23 Acute on chronic systolic (congestive) heart failure; J44.1 Chronic obstructive pulmonary disease with (acute) exacerbation; I51.81 Takotsubo syndrome; I48.2 Chronic atrial fibrillation; G47.00 Insomnia, unspecified; E78.00 Pure hypercholesterolemia, unspecified; J96.22 Acute and chronic respiratory failure with hypercapnia; I27.20 Pulmonary hypertension, unspecified; I11.0 Hypertensive heart disease with heart failure; D64.9 Anemia, unspecified; I49.9 Cardiac arrhythmia, unspecified; M41.9 Scoliosis, unspecified; Z95.2 Presence of prosthetic heart valve; Z98.42 Cataract extraction status, left eye; Z98.41 Cataract extraction status, right eye; Z95.1 Presence of aortocoronary bypass graft
CPT/HCPCS: 10045

== ENCOUNTER 2018-02-13 11:02 | Emergency (ER) | payer OTHER ==
[~2018-02-13] VITALS: Ht 157.5 cm; Wt 40.8 kg
--- NOTE | ~2018-02-13 | EKG ---
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 : 1930 Requested By: Glen Juarez Order Number: [id number] MD: Cole Moreno Measurements Intervals [place] Rate: 81 P: -53 VT: 206 QRS: -61 QRSD: 131 T: 103 QT: 419 QTc: 487 Interpretive Statements Sinus or ectopic atrial rhythm Sinus Rhythm Paired ventricular premature complexes Nonspecific IVCD with LAD ST elevation in lead I clinical correlation suggested Compared to ECG 07/13/2017 10:22:15 Intraventricular conduction delay now present ST (T wave) deviation now present Electronically Signed On 02-15-2018 22:38:16 PLANE RUNNER by Cole Moreno [email or web address] <ELECTRONICALLY SIGNED> By: Cole Moreno MD 02/15/18 2238 1110 1110 Cole Moreno MD /EPI
[~2018-02-13 11:02] MED LIST changes: +CEFUROXIME250 MG PO; +PREDNISONE 20 M20 M1 PO; +PULMICORT0.5 MG/22 INH
[2018-02-13 11:34] LABS: ABSOLUTE NEUTROPHILS 8.5 thou/uL (1.4-8.2); BASOPHILS 1.6 % (0.0-2.0); EOSINOPHILS 3.2 % (0.0-3.0); HEMATOCRIT 27.7 % (37.0-47.0); HEMOGLOBIN 9.1 gm/dL (12.0-15.0); LYMPHOCYTES 13.3 % (24.0-44.0); MCH 31.9 pg (26.0-34.0); MCHC 32.9 g/dL (28.0-37.0); MCV 96.8 fL (80.0-100.0); MONOCYTES 5.3 % (1.0-8.0); POLYS 76.6 % (36.0-66.0); RBC 2.87 mil/uL (4.20-5.00); RDW 29.1 % (10.5-14.5)
[2018-02-13 11:39] LABS: ANION GAP 7 mmol/L (7-16); BUN 21 mg/dL (7-18); CALCIUM 9.2 mg/dL (8.5-10.1); CHLORIDE 106 mmol/L (98-107); CO2 26 mmol/L (21-32); GLUCOSE 99 mg/dL (74-106); SODIUM 139 mmol/L (136-145)
[2018-02-13 11:41] LABS: PLATELET COUNT 979 thou/uL (150-400)
[2018-02-13 11:48] LABS: TROPONIN-I <0.06 ng/mL (<0.06)
[2018-02-13 12:11] LABS: ALBUMIN 3.3 g/dL (3.4-5.0); DIRECT BILIRUBIN 0.2 mg/dL (<0.1-0.3); TOTAL BILIRUBIN 1.1 mg/dL (<0.1-1.0); TOTAL PROTEIN 5.5 g/dL (6.4-8.2)
[2018-02-13 12:36] LABS: URINE BILIRUBIN NEGATIVE (Negative); URINE BLOOD NEGATIVE (Negative); URINE CLARITY CLEAR; URINE COLOR YELLOW; URINE GLUCOSE-RANDOM* NEGATIVE (Negative); URINE KETONES NEGATIVE (Negative); URINE LEUKOCYTES-REFLEX NEGATIVE (Negative); URINE NITRITE-REFLEX NEGATIVE (Negative); URINE PROTEIN (DIPSTICK) NEGATIVE (Negative); URINE SPECIFIC GRAVITY 1.025 (1.005-1.035); URINE UROBILINOGEN 0.2 E.U./dl (0.2-1.0)
[2018-02-13 12:41] LABS: ANISOCYTOSIS 3+; MACROCYTES 2+; MICROCYTES 2+; PLATELET ESTIMATE MARKEDLY INCREASED
[2018-02-13 12:42] LABS: OVALOCYTES 2+; POIKILOCYTOSIS 3+; POLYCHROMASIA 2+; SCHISTOCYTES 1+; TARGET CELLS 1+
[2018-02-13] MEDS ORDERED: TYLENOL325 MG PO (13:14)
[2018-02-13] MEDS ORDERED: ROBAXIN500 MG PO (13:14)
[2018-02-13 13:30] VITALS: BP 97/45
== END 2018-02-13 13:30 | disposition home or self-care (01) ==
LOC: ER 11:02
PROVIDERS: Emergency Medicine
DX: R07.89 Other chest pain (principal); J44.9 Chronic obstructive pulmonary disease, unspecified; E78.00 Pure hypercholesterolemia, unspecified

== ENCOUNTER 2018-03-23 17:16 | Inpatient (IN) | payer OTHER ==
[~2018-03-23] VITALS: Ht 162.6 cm; Wt 46.8 kg
--- NOTE | ~2018-03-23 | HC ---
[facility] [place] [address] CONSULTATION Name: KYUNG MORALES Room #: 220-P ADM IN M.R.#: [id number] Admission: 03/23/18 Attend Phys: Hitesh Washburn MD Discharge: Date of : 29 Report #: [id number] THIS REPORT FOR: //name// CC: Hitesh Washburn DATE OF SERVICE: 03/25/2018 HISTORY OF PRESENT ILLNESS: This 87-year-old white female was admitted through the Emergency Room with flu-like complaints, which had been worsening over the past 3-4 days. She is well known to Dr. Washburn who has consulted us because of abnormal CBC. She is feeling better since hospitalization and states that this situation with elevated platelets has been present for some time, but not associated with known thrombotic events. She denies any sweats, chills, fevers or unintended weight loss. PAST MEDICAL HISTORY: Significant for prior congestive heart failure along with cardiomyopathy. She has chronic obstructive lung disease and a past history of second-hand smoke. ALLERGIES: None known. MEDICATIONS: As listed. FAMILY HISTORY: Negative for known myeloproliferative disorders. SOCIAL HISTORY: She is a reformed smoker though she stated that she personally never smoked heavily. REVIEW OF SYSTEMS: Positive as in the history of present illness for worsening shortness of breath associated with weakness and fatigue. She denies any adenopathy or palpable masses. PHYSICAL EXAMINATION: GENERAL: Shows an elderly white female who is alert and cooperative. HEENT: Normocephalic. CARDIOVASCULAR: Shows irregular pulse with a murmur. CHEST: Shows expiratory wheezing. ABDOMEN: Shows no palpable spleen. LYMPHATICS: Shows no palpable adenopathy. SKIN: Normal turgor. EXTREMITIES: No clubbing, cyanosis, edema. NEUROLOGIC: No focal localizing signs. PSYCHIATRIC: Not agitated or confused. [facility] [address] [place] [address] CONSULTATION Name: SENIABretKEVYNKYUNG ASKEW Room #: 220-P [facility] IN ..#: [id number] Admission: 03/23/18 Attend Phys: Hitesh Washburn MD Discharge: Date of : 29 Report #: [id number] HOSPITAL COURSE: Her labs were reviewed from October when she was an inpatient at [facility] and showed a platelet count of over one million. This now has risen to 1.55 million. She has a leukocytosis with a white count of 17,000 and a normochromic normocytic anemia of 29.6% hematocrit. ASSESSMENT: I assume leukocytosis is reactive to her current event, but clearly she is more anemic than one would expect, especially with known chronic obstructive pulmonary disease and cardiovascular disease. Her platelets continued to rise and are higher than one would expect from a reactive thrombocytosis, though we will go ahead and obtain iron studies. I have ordered a JAK2 mutation testing. She is asked to limit testing because the earlier physician and hospital bills and at this time would not be interested in having a bone marrow performed. I will await results of the aforementioned studies and full and further recommendations be forthcoming. Thanks for allowing us to see her in consultation and being allowed to participate in her care. By: 1656 2254 Jenna Pereira MD /nt
[~2018-03-23 17:16] MED LIST changes: +ROBAXIN500 MG PO; +TYLENOL325 MG PO
[2018-03-23 17:17] VITALS: BP 142/68
[2018-03-23 18:06] LABS: WBC 17.5 thou/uL (4.0-11.0)
[2018-03-23 18:08] LABS: HEMATOCRIT 29.9 % (37.0-47.0); MCH 32.8 pg (26.0-34.0); MCHC 33.6 g/dL (28.0-37.0); MCV 97.6 fL (80.0-100.0); RBC 3.06 mil/uL (4.20-5.00); RDW 28.9 % (10.5-14.5)
[2018-03-23 18:13] LABS: CALCIUM 9.4 mg/dL (8.5-10.1)
[2018-03-23 18:19] LABS: ALBUMIN 3.6 g/dL (3.4-5.0); TOTAL BILIRUBIN 0.7 mg/dL (<0.1-1.0); TOTAL PROTEIN 6.2 g/dL (6.4-8.2)
[2018-03-23 18:29] LABS: ABSOLUTE NEUTROPHILS 16.3 thou/uL (1.4-8.2)
[2018-03-23 18:30] LABS: ANISOCYTOSIS 1+
[2018-03-23 18:31] LABS: LARGE PLATELETS OCCASIONAL; OVALOCYTES FEW; POIKILOCYTOSIS SLIGHT; POLYCHROMASIA OCCASIONAL
[2018-03-23 18:33] LABS: PLATELET COUNT 1393 thou/uL (150-400)
[2018-03-23 19:01] LABS: URINE BILIRUBIN NEGATIVE (Negative); URINE BLOOD NEGATIVE (Negative); URINE CLARITY CLEAR; URINE COLOR YELLOW; URINE GLUCOSE-RANDOM* NEGATIVE (Negative); URINE KETONES NEGATIVE (Negative); URINE LEUKOCYTES-REFLEX NEGATIVE (Negative); URINE NITRITE-REFLEX NEGATIVE (Negative); URINE PROTEIN (DIPSTICK) NEGATIVE (Negative); URINE UROBILINOGEN 0.2 E.U./dl (0.2-1.0)
[2018-03-23 21:09] VITALS: BP 151/87
--- NOTE | 2018-03-23 21:25 | NUR ---
ADMISSION NOTE: PT ARRIVED ON THE UNIT AT 2124, PT ALERT AND ORIENTED X4, PT IN SR, VSS STABLE, DR SIMON CALLED FOR PT'S MEDICATION REQUESTS, WILL CONTINUE TO MONITOR.
[2018-03-23 21:30] VITALS: BP 120/52
[2018-03-24 05:48] VITALS: BP 127/65
--- NOTE | 2018-03-24 06:09 | NUR ---
ASSUMED CARE @212403/23/18, PT ASSESSMENT AND VSS COMPLETE PER MED-SURG TELE STATUS, PT ALERT AND ORIENTED X4, PT SR-SA ON THE MONITOR, PT ASKED FOR SLEEP MEDICINE AND LAXATIVE, DR SIMON CALLED, ORDERS RECIEVED. PT REMAINED STABLE THROUGHOUT THE NIGHT. PLAN OF CARE WILL CONT TO MONITOR.
[2018-03-24 08:04] VITALS: BP 134/66
[2018-03-24 09:43] LABS: HEMATOCRIT 28.4 % (37.0-47.0); HEMOGLOBIN 9.2 gm/dL (12.0-15.0); MCH 32.2 pg (26.0-34.0); MCHC 32.3 g/dL (28.0-37.0); MCV 99.7 fL (80.0-100.0); RBC 2.85 mil/uL (4.20-5.00); RDW 28.7 % (10.5-14.5)
[2018-03-24 09:52] LABS: ALBUMIN 3.4 g/dL (3.4-5.0); CALCIUM 8.4 mg/dL (8.5-10.1); CREATININE 0.8 mg/dL (0.6-1.0); POTASSIUM 4.1 mmol/L (3.5-5.1); TOTAL BILIRUBIN 0.6 mg/dL (<0.1-1.0); TOTAL PROTEIN 5.9 g/dL (6.4-8.2)
--- NOTE | 2018-03-24 10:04 | EKG ---
[address] [place] [address] ELECTROCARDIOGRAM REPORT Name: CARMENKYUNG Room #: 454-P ADM IN M.R.#: [id number] Admission: 03/23/18 Attend Phys: Hitesh Washburn MD Discharge: Date of : 29 Report #: [id number] THIS REPORT FOR: //name// [facility] ED Test Date: 2018-03-23 Test Time: 18:43:47 Pat Name: KYUNG MORALES Department: Room: [facility] Gender: F Environmental Conservation Officer: Eladia SALAZAR : 1930 Requested By: Jovon Thompson Order Number: [id number] MD: Paulino Hodge Measurements Intervals [place] Rate: 78 P: 27 MT: 242 QRS: -63 QRSD: 135 T: -33 QT: 451 QTc: 514 Interpretive Statements Sinus rhythm Prolonged MT interval Probable left atrial enlargement Leftward axis Nonspecific intraventricular conduction delay Compared to ECG 02/13/2018 11:10:25 Ventricular premature complex(es) no longer present Electronically Signed On 03-24-2018 10:04:44 FILM LABORATORY TECHNICIAN by Paulino Hodge [email or web address] <ELECTRONICALLY SIGNED> By: Paulino Hodge MD, [facility] 03/24/18 1004 1843 1843 Paulino Hodge MD, [facility] /EPI
[2018-03-24 14:13] VITALS: BP 115/61
[2018-03-24 17:49] VITALS: BP 164/86
[2018-03-24 19:33] VITALS: BP 138/69
--- NOTE | 2018-03-24 20:56 | NUR ---
PATIENT IS ALERT AND ORIENTED AND STATES SHE DOESN'T KNOW WHY SHE FEELS SO WEAK. PATIENT BECOMES SHORT OF AIR AND FATIGUED TWICE TODAY WHEN AMBULATING TO BATHROOM. PLACED BEDSIDE COMMODE NEXT TO BED TO CONSERVE ENERGY.
[2018-03-25 04:30] VITALS: BP 120/62
--- NOTE | 2018-03-25 06:34 | NUR ---
Pt a/o x 4. RA or O2 2L NC PRN. VSS. Unsteady, up with assist to bedside commode. Denies pain or any other discomfort. No apparent distress noted. Fall precautions maintained. Call light within reach. Will continue to monitor.
[2018-03-25 07:55] LABS: HEMOGLOBIN 9.2 gm/dL (12.0-15.0)
[2018-03-25 07:56] LABS: HEMATOCRIT 29.6 % (37.0-47.0); MCH 31.4 pg (26.0-34.0); MCHC 31.1 g/dL (28.0-37.0); RBC 2.93 mil/uL (4.20-5.00); RDW 29.2 % (10.5-14.5); WBC 17.2 thou/uL (4.0-11.0)
[2018-03-25 08:14] LABS: ALBUMIN 3.5 g/dL (3.4-5.0); CALCIUM 8.7 mg/dL (8.5-10.1); CREATININE 0.7 mg/dL (0.6-1.0); TOTAL BILIRUBIN 0.6 mg/dL (<0.1-1.0); TOTAL PROTEIN 5.9 g/dL (6.4-8.2)
[2018-03-25 08:20] LABS: POTASSIUM 5.2 mmol/L (3.5-5.1)
[2018-03-25 08:59] VITALS: BP 143/65
[2018-03-25 11:21] LABS: % SATURATION 47 % (20-39); IRON 133 ug/dL (50-170); TIBC 282 ug/dL (250-450)
[2018-03-25 11:25] LABS: OBSERVED RETIC COUNT 1.84 % (0.6-2.6)
--- NOTE | 2018-03-25 12:13 | NUR ---
CM VISITED WITH PT AT BEDSIDE, CONSULTED FOR DCP. PT IS A & O X 3 AND ABLE TO MAKE HER NEEDS KNOW. INTRO TO CM, TRANSITION OF CARE, HOME HEALTH AND REHAB. " LIVE HOME IN HOUSE ALONE, SAFE, HAVE SUPPORT FROM FRIENDS AND SON TODD. HAVE NEBULIZER, AND TRILOGY FROM [facility]. HAD OUTPT PULMONARY REHAB IN PAST. GO OUT TO EAT OR COOK IN [place]. WILL NOT NEED REHAB OR HOME HEALTH"/KYUNG. WILL CONT FOLLOWING NEEDED FOR DC NEEDS. REPORT PASSED ON TO BEDSIDE NURSE RT VISIT.
--- NOTE | 2018-03-25 12:18 | NUR ---
Nutrition: assess d/t consult for poor intake. Pt admitted for COPD exacerbation. Hx of HLD and CHF. Has had multiple previous admissions. Pt reports low appetite while inpatient d/t cold/undesirable food. Provided menu, pt is aware of how to order food. She is interested in trying Ensure. UBW of ~100 lbs, no weight loss over past 2 years. Consider low risk.
--- NOTE | 2018-03-25 15:31 | 2DMMODE ---
[facility] [address] [place] [address] 2 D/M-MODE ECHOCARDIOGRAM Name: LIANGAZARKYUNG Room #: 454-P ADM IN M.R.#: [id number] Admission: 03/23/18 Attend Phys: Hitesh Washburn, Discharge: Date of : 29 Date of Service: 03/25/18 1530 Report #: [id number] THIS REPORT FOR: //name// APPROVED REPORT Study performed: 03/25/2018 14:15:02 EXAM: Comprehensive 2D, Doppler, and color-flow Echocardiogram Patient Location: Bedside Room #: 454 Status: routine BSA: 1.48 HR: 82 bpm BP: 143/65 mmHg Other Information Study Quality: Adequate Indications COPD Atrial Fibrillation Cardiomyopathy Hypertension/HDD MVR 2D Dimensions RVDd: 45.41 mm IVSd: 7.89 (7-11mm) LVOT Diam: 19.93 (18-24mm) LVDd: 55.01 mm PWd: 8.72 (7-11mm) Ascending Ao: 34.51 (22-36mm) LVDs: 39.59 (25-40mm) Aortic Root: 30.96 mm IVC: 23.00 mm Volumes Left Atrial Volume (Systole) Single Plane 4CH: 105.42 mL Single Plane 2CH: 108.18 mL LA ESV Index: 78.00 mL/m2 Aortic Valve AoV Peak Cash.: 2.14 m/s AO Peak Gr.: 18.28 mmHg LVOT Max P.33 mmHg LVOT Max V: 1.26 m/s DARIANA Vmax: 1.83 cm2 Mitral Valve [facility] [address] [address] 2 D/M-MODE ECHOCARDIOGRAM Name: KYUNG MORALES Room #: 454-P [facility].#: [id number] Admission: 03/23/18 Attend Phys: Hitesh Washburn, Discharge: Date of : 28 Date of Service: 03/25/18 1530 Report #: [id number] MV Peak Gr.: 27.34 mmHg MV Mean Gr.: 18.42 mmHg E/A Ratio: 1.0 MV Decel. Time: 222.64 ms MV E Max Cash.: 2.20 m/s MV A Cash.: 2.15 m/s MV Max Cash.: 2.61 m/s MV Mean Cash.: 2.08 m/s MV VTI: 662.11 mm MV PHT: 64.57 ms MVA (PHT): 3.30 cm2 IVRT: 72.66 ms Pulmonary Valve PV Peak Cash.: 1.11 m/s PV Peak Gr.: 4.90 mmHg Pulmonary Vein P Vein S: 0.44 m/s P Vein A: 0.21 m/s P Vein D: 0.31 m/s P Vein A Dur.: 101.5 msec P Vein S/D Ratio: 1.42 Tricuspid Valve TR Peak Cash.: 3.79 m/s TR Peak Gr.: 57.32 mmHg PA Pressure: 72.00 mmHg Left Ventricle Left ventricle is at the upper limits of normal. There is normal LV segmental wall motion. There is normal left ventricular wall thickness. The left ventricular systolic function is normal. The left ventricular ejection fraction is within the normal range. LVEF is 50-55%. This study is not technically sufficient to allow evaluation of the LV diastolic function. Right Ventricle Right ventricle is dilated. The right ventricular systolic function is normal. Atria Left atrium is dilated. Small PFO is noted with color flow doppler. Right atrium is dilated. Aortic Valve Trileaflet, moderately sclerotic. Mild aortic regurgitation. There is no aortic valvular stenosis. Mitral Valve [facility] [address] [place] [address] 2 D/M-MODE ECHOCARDIOGRAM Name: KYUNG MORALES Room #: 454-P [facility] IN [facility]#: [id number] Admission: 03/23/18 Attend Phys: Hitesh Washburn, Discharge: Date of : 28 Date of Service: 03/25/18 1530 Report #: [id number] There is a bioprosthetic mitral valve (Peak gradient 27mm, mean 18mmHg). Mild-moderate mitral regurgitation. No evidence of mitral valve stenosis. Tricuspid Valve The tricuspid valve is normal in structure. There is moderate tricuspid regurgitation. Estimated PAP 65 mmHg. There is severe pulmonary hypertension. Pulmonic Valve The pulmonary valve is normal in structure. Trace pulmonic regurgitation. Great Vessels The aortic root is normal in size. The inferior vena cava is dilated with no inspiratory collapse. Pericardium There is no pericardial effusion. <Conclusion> The left ventricular systolic function is normal. LVEF is 50-55%. Right ventricle is dilated. Both atria are dilated. Small PFO is noted with color flow doppler. Trileaflet, moderately sclerotic. Mild aortic regurgitation. There is a bioprosthetic mitral valve (Peak gradient 27mm, mean 18mmHg). Mild-moderate mitral regurgitation. There is moderate tricuspid regurgitation. Estimated pulmonary artery pressure of 65 mmHg. There is no pericardial effusion. <ELECTRONICALLY SIGNED> By: Paulino Hodge MD, FACC 03/25/18 [phone] Paulino Hodge MD, FACC /INF
[2018-03-25 16:14] VITALS: BP 128/62
--- NOTE | 2018-03-25 17:48 | NUR ---
PATIENT CAME DOWN FROM 4W ROOM 454 AT 1530. REASSESSMENT DONE, ORIENTED TO THE UNIT. VSS.
--- NOTE | 2018-03-26 04:26 | NUR ---
patient cares were assumed at shift change. patient was assessed and meds were passed. hourly rounding was done and patient did apper to be a sleep. bed alarm is on and the bed is in a low and locked position
--- NOTE | 2018-03-26 19:29 | NUR ---
ASSUMED CARE OF PATIENT AT 0715, PATIENT ALERT AND ORIENTED X 4. UP WITH SBA TO BR. PATIENT HARISH PAIN THIS SHIFT. PATIENT HAS O2 PRN, AND PATIENT C/O SOA O2 APPLIED AT 2 LITERS/NC. PATIENT RECEIVES BREATHING TREATMENTS SCHEDULED. PATIENT HAS LEFT FOREARM IV IN PLACE, PATIENT RECEIVES IV ANTIBIOTICS. WILL CONTINUE TO MONITOR.
[2018-03-26 20:44] VITALS: BP 136/64
--- NOTE | 2018-03-27 01:32 | NUR ---
Pt A/OX4,up with SBA. Denies pain on assessment. Voiding without any difficulties voiced. VSS.Skin with old bruises. Has edema on BLE,encouraged to elevate extremeties. Requested for sleep aid and anxiety meds at HS stating yesterday she had an anxiety attack,meds effective. Pt resting with Trilogy in place. Will continue to monitor pt.
[2018-03-27 07:52] VITALS: BP 158/81
[2018-03-27 09:31] VITALS: BP 119/59
[2018-03-27 15:06] LABS: M-SPIKE Not Observed g/dL (Not Observed)
[2018-03-27 19:04] VITALS: BP 107/53
--- NOTE | 2018-03-27 20:46 | NUR ---
THIS NOTE DONE EARLIER BUT IN WRONG PATIENT'S CHART. ASSUMED CARE OF PATIENT AT 0715, PATIENT ALERT AND ORIENTED X 4. PATIENT UP WITH SBA. PATIENT DENIES PAIN THIS SHIFT. PAIENT HAS LEFT FOREARM IV IN PLACE, PATIENT RECEIVING 2 IV ANTIBIOTICS THIS SHIFT. PATIENT WAS UP IN CHAIR, AND C/O FEELING NUMBNESS OVER BODY, SPEECH SLIGHTLY SLURRED, AND C/O PAIN WITH LEFT ARM. VITALS DONE AT THAT TIME 119/59, HR 69, SATS 95% ON ROOM AIR, RESP. 24. THIS RN NOTIFIED DR CERVANTES OF SYMPTOMS, HE WILL COME CHECK ON PATIENT. THIS RN GOT PATIENT BACK TO BED, SHE STATES FEELING A LITTLE BETTER AFTER BACK TO BED, O2 AT 2 LITERS/NC APPLIED. DR CERVANTES CAME TO SEE PATIENT, SHE IS FEELING BETTER NOW, NO PAIN IN HER LEFT ARM, SPEECH BETTER, AND NUMBNESS RESOLVED, DR CERVANTES STATES HE CHANGED HER BREATHING TXS AND CONTINUE TO MONITOR. INSTRUCTED PATIENT TO CALL FOR ASSISTANCE EACH TIME SHE NEEDS TO GET UP. PAYIENT GIVEN TORSEMIDEPO NEW ORDER, INSTRUCTED PATIENT SHE WILL BE URINATING MORE AND CALL FOR ASSISTANCE, SHE VERBALIZE UNDERSTANDING. PATIENT CONTINUES TO REST AT THIS TIME. WILL CONTINUE TO MONITOR.
[2018-03-27 21:37] VITALS: BP 117/65
--- NOTE | 2018-03-28 02:26 | NUR ---
Pt A/OX4,up with SBA. Denies pain on assessment. VSS.Voiding without problems,having soft BM's but still requested for MOM @ HS.Also requested for ambien/ativan,encouraged her to space out but pt insisted she takes them both at the same time at home. Pt reminded to call for help if she needs to use BR and doing so. Pt wearing BIPAP and resting quietly, HR noted dropping to the 30's has paroxysmal Afib,arouses pt and she states she is fine. Will continue to monitor pt.Call light/personal items within reach.
[2018-03-28 08:00] VITALS: BP 105/55
--- NOTE | 2018-03-28 12:20 | NUR ---
PATIENT CARE WAS ASSUMED AT 0715.PATIENT IS ALERT AND ORIENTED X4.PT IS ABLE TO AMBULATE ON HER OWN.PT HAS NO COMPLAIN OF PAIN AT THIS TIME.IV IS PATENT, AND SALINE LOCKED.CALL LIGHT, PHONE, AND PERSONAL BELONGINGS ARE WITHIN REACH.
[2018-03-28 19:46] VITALS: BP 108/49
--- NOTE | 2018-03-29 03:05 | NUR ---
PATIENT ALERT AND ORIENTED X4. NO C/O PAIN. PATIENT REQUESTED AMBIEN 10MG PRN MEDICATION AND RECEIVED FOR SLEEP. RT MONITORED CPAP DURING THE NIGHT. NO ANXIETY MEDICATION NEEDED AT TIME OF NOTE. COOPERATIVE WITH CARE AND PLEASANT. UP ADLIB IN ROOM, HOWEVER, BED ALARM ON DUE TO POTENTIAL SLEEP WALKING AT NIGHT. RESTING QUIETLY. POSSIBLE DISCHARGE TODAY. WILL MONITOR.
[2018-03-29 06:33] LABS: HEMOGLOBIN 9.3 gm/dL (12.0-15.0)
[2018-03-29 06:35] LABS: HEMATOCRIT 28.5 % (37.0-47.0); MCH 32.1 pg (26.0-34.0); MCHC 32.7 g/dL (28.0-37.0); MCV 98.1 fL (80.0-100.0); RBC 2.9 mil/uL (4.20-5.00); RDW 28.4 % (10.5-14.5); WBC 19.2 thou/uL (4.0-11.0)
[2018-03-29 06:42] LABS: CALCIUM 8.5 mg/dL (8.5-10.1); CREATININE 1.1 mg/dL (0.6-1.0); POTASSIUM 4.5 mmol/L (3.5-5.1)
[2018-03-29 08:12] VITALS: BP 114/66
[2018-03-29] MEDS ORDERED: CEFDINIR300 MG PO (12:16)
[2018-03-29] MEDS ORDERED: METOPROLOL SUCC50 MG PO (12:17)
[2018-03-29] MEDS ORDERED: COZAAR 25 MG TA25 M2 PO (12:17)
[2018-03-29] MEDS ORDERED: MUCINEX DM ER1 EAC1 PO (12:17)
[2018-03-29] MEDS ORDERED: PREDNISONE 10 M10 MG PO (12:19)
[2018-03-29 13:00] VITALS: BP 114/66
--- NOTE | 2018-03-29 15:34 | NUR ---
ASSUMED CARE OF PATIENT AT 0715, PATIENT UP WITH SBA TO BATHROOM. PAIROXY DENIES PAIN THIS SHIFT. PATIENT HAD LEFT FOREARM IV IN PLACE, RECEIVED 2 IV ANTIBIOTICS THIS SHIFT.NO SOA REPORTED FROM [facility] TODAY, NO C/O COUGH TODAY, BILATERAL LUNGS CLEAR/DIMINISHED, PATIENT RECEIVED BREATHING TREATMENTS ORDERED. DR CERVANTES HERE TO SEE PATIENT, PATIENT WILL DISCHARGE TO HOME THIS AFTERNOON. LEFT FOREARM IV REMOVED, PATIENT DRESSED. ALL DISCHARGE PAPERWORK AND ALL PERSONAL BELONGINGS SENT WITH PATIENT. SON/TODD HERE TO TRANSPORT PATIENT HOME.
== END 2018-03-29 15:32 | disposition home or self-care (01) | DRG 871 ==
LOC: ER 17:16 → EROBS 19:59 → 4W 19:59 → ENTRNSPT 03-25 15:18 → EDTRNSPTSTS 03-25 15:20 → 4W 03-25 15:50 → SICU 03-25 15:51
PROVIDERS: Hospitalist; Internal Medicine Hematology & Oncology; Physician Assistant; ADMIT Family Medicine
PROC: 5A09357 Assistance with Respiratory Ventilation, Less than 24 Consecutive Hours, Continuous Positive Airway Pressure (ICD-10-PCS; principal; 2018-03-26)
PROC: 5A09357 Assistance with Respiratory Ventilation, Less than 24 Consecutive Hours, Continuous Positive Airway Pressure (ICD-10-PCS; 2018-03-28)
PROC: 5A09357 Assistance with Respiratory Ventilation, Less than 24 Consecutive Hours, Continuous Positive Airway Pressure (ICD-10-PCS; 2018-03-29)
DX: A41.9 Sepsis, unspecified organism (principal); J18.9 Pneumonia, unspecified organism; N17.9 Acute kidney failure, unspecified; I51.81 Takotsubo syndrome; J44.1 Chronic obstructive pulmonary disease with (acute) exacerbation; J44.0 Chronic obstructive pulmonary disease with (acute) lower respiratory infection; E78.5 Hyperlipidemia, unspecified; E78.00 Pure hypercholesterolemia, unspecified; D47.3 Essential (hemorrhagic) thrombocythemia; G47.00 Insomnia, unspecified; F32.9 Major depressive disorder, single episode, unspecified; I35.0 Nonrheumatic aortic (valve) stenosis; D64.9 Anemia, unspecified; I50.9 Heart failure, unspecified; I25.10 Atherosclerotic heart disease of native coronary artery without angina pectoris; I48.0 Paroxysmal atrial fibrillation; Z95.1 Presence of aortocoronary bypass graft; Z95.2 Presence of prosthetic heart valve; Z90.710 Acquired absence of both cervix and uterus; Z87.891 Personal history of nicotine dependence; Z98.42 Cataract extraction status, left eye; Z98.41 Cataract extraction status, right eye; Z79.01 Long term (current) use of anticoagulants; Z79.899 Other long term (current) drug therapy; Z23 Encounter for immunization
CPT/HCPCS: 10045; 15002